=== PATIENT | female | born 1980 | race Hispanic/Latino ===

== ENCOUNTER 2018-06-24 08:58 | Outpatient (CLI) | payer OTHER ==
--- NOTE | 2018-06-24 11:13 | ULT ---
LIMITED RIGHT BREAST ULTRASOUND: Date: 06-24-18 Provided Clinical History: Right breast palpable abnormality. FINDINGS: Limited sonographic interrogation is performed of the right breast in the 12-12:30 position. There is a 2.1 cm oval hypoechoic mass with macrolobulated margins and evidence for internal flow present in the region of palpable concern. IMPRESSION: BIRADS category 4 - suspicious abnormality. Ultrasound guided biopsy is recommended. Results and donna mmendations discussed with patient, who voiced understanding. POS: OFF
== END 2018-06-24 08:59 | disposition home or self-care (01) ==
LOC: BICMAMMO 08:58
PROVIDERS: ATTEND Obstetrics & Gynecology
DX: N63.10 Unspecified lump in the right breast, unspecified quadrant (principal)
CPT/HCPCS: 77066; G0279